=== PATIENT | female | born 1975 | race Caucasian/White ===

== ENCOUNTER 2022-12-22 14:58 | Outpatient (RCR) | payer MEDICARE, MEDICAID, SELFPAY | END 2023-03-08 10:52 | disposition home or self-care (01) | LOC: ANHPT 14:58 | PROVIDERS: PCP Family Medicine; Visit Provider Family Medicine Sports Medicine | DX: E66.01 Morbid (severe) obesity due to excess calories (principal); Z68.43 Body mass index [BMI] 50.0-59.9, adult | CPT/HCPCS: 99199 ==